=== PATIENT | female | born 1995 | race Two or more races ===

== ENCOUNTER 2017-02-10 18:25 | Emergency (ER) | payer OTHER ==
[2017-02-10 18:37] VITALS: BP 125/65
[2017-02-10] MEDS ORDERED: Sodium Chloride 0.9% 1,000 ML IV ONE ×2 (19:13→20:43)
[2017-02-10] MEDS ORDERED: Ondansetron 4 MG/2 ML SDV IVPUSH ONE (20:29)
--- NOTE | 2017-02-10 21:07 | EDM.PDOC ---
ED HPI GENERAL MEDICAL PROBLEM - General Chief Complaint: Back Pain or Injury Stated Complaint: 16 WKS PG - ABDOMINAL PAIN Time Seen by Provider: 02/10/17 19:09 Source of Information: Reports: Patient History Limitations: Reports: No Limitations - History of Present Illness INITIAL COMMENTS - FREE TEXT/NARRATIVE: This is a 21-year-old female. She isn't incarcerated [facility] [place]. He apparently is 16 weeks she is a 3 para 1 aborta 1. Apparently today the nurses at the [facility] unable to find a heartbeat and the patient was having some mild nausea but no vomiting and having some right-sided back pain but denies any urinary tract type symptoms. She arrived to the ER she was noted to have orthostatic vital signs. She denies any fever or chills, no cough. She is more concerned about her right back pain as well as the absence of heart tones. She denies any other acute symptoms at this time. She does give a history of having urinary tract infections with her first . Right Lower Back Pain Score (Numeric/FACES): 6 - Related Data Allergies Allergy/AdvReac Type Severity Reaction Status Date / Time No Known Allergies Allergy Verified 02/10/17 18:36 Home Meds: Home Meds Promethazine [Phenergan] 25 mg PO Q6H PRN #10 tablet 02/11/17 [Rx] Past Medical History Genitourinary History: Reports: UTI, Recurrent [employer] History: Reports: , Other (See Below) Other OB/BYN History: G3, P1, A1 Psychiatric History: Reports: Addiction Social & Family History - Tobacco Use Smoking Status *Q: Never Smoker Second Hand Smoke Exposure: No - Caffeine Use Caffeine Use: Reports: None - Recreational Drug Use Recreational Drug Use: Yes Drug Use in Last 12 Months: Yes Recreational Drug Type: Reports: Methamphetamine Other Recreational Drug Type: 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 ED ROS GENERAL - Review of Systems Review Of Systems: See Below Constitutional: Denies: Fever, Chills HEENT: Reports: No Symptoms Respiratory: Reports: No Symptoms Cardiovascular: Reports: No Symptoms Endocrine: Reports: No Symptoms GI/Abdominal: Denies: Abdominal Pain, Diarrhea, Nausea, Vomiting : Reports: No Symptoms Musculoskeletal: Reports: Back Pain Skin: Reports: No Symptoms Neurological: Reports: No Symptoms Psychiatric: Reports: No Symptoms Hematologic/Lymphatic: Reports: No Symptoms ED EXAM,LOWER BACK PAIN/INJURY - Physical Exam Exam: See Below Exam Limited By: No Limitations General Appearance: Alert, WD/WN, No Apparent Distress Eye Exam: Bilateral Eye: Normal Inspection Ears: Normal External Exam, Normal Canal, Normal TMs Nose: Normal Inspection Throat/Mouth: Normal Inspection, Normal Lips, Normal Oropharynx, Normal Voice Head: Normocephalic Neck: Supple Respiratory/Chest: No Respiratory Distress, Lungs Clear, Normal Breath Sounds Cardiovascular: Regular Rate, Rhythm, No Murmur GI/Abdominal: Soft, Non-Tender, Other (Might be able to feel the uterus slightly in the lower abdomen, no tenderness noted) Back Exam: Other (She has maybe some mild tenderness in the right flank area but it is not excessive and not 100% reproducible, no other back tenderness has been noted) Extremities: Normal Inspection, Normal Range of Motion Neurological: Alert, Normal Mood/Affect Psychiatric: Normal Affect, Normal Mood Skin Exam: Warm, Dry Course - Vital Signs Last Recorded V/S: Last Vital Signs Temp 97.6 F 02/10/17 18:34 Pulse 73 02/10/17 18:34 Resp 19 02/10/17 18:34 BP 125/65 02/10/17 18:34 Pulse Ox 100 02/10/17 18:34 Orthostatic Blood Pressure [ 106/68 Standing] Orthostatic Blood Pressure [ 125/71 Sitting] Orthostatic Blood Pressure [ 120/61 Supine] - Orders/Labs/Meds Orders: Active Orders 24 hr Category Date Time Status Abdomen Ltd [US] Stat Exams 02/10/17 23:42 Taken OB Ltd 1 or More Fetus [US] Stat Exams 02/10/17 19:27 Taken Labs: Laboratory Tests 02/10/17 02/10/17 02/10/17 Range/Units 18:50 19:20 19:20 WBC 8.83 (3.98-10.04) K/mm3 RBC 4.05 (3.98-5.22) M/mm3 Hgb 13.3 (11.2-15.7) gm/L Hct 38.6 (34.1-44.9) % MCV 95.3 H (79.4-94.8) fl MCH 32.8 H (25.6-32.2) pg MCHC 34.5 (32.2-35.5) g/dl RDW Std Deviation 44.8 (36.4-46.3) fL Plt Count 215 (182-369) K/mm3 MPV 10.9 (9.4-12.3) fl Neut % (Auto) 67.7 (34.0-71.1) % Lymph % (Auto) 24.2 (19.3-51.7) % [place] % (Auto) 7.1 (4.7-12.5) % Eos % (Auto) 0.3 L (0.7-5.8) Baso % (Auto) 0.2 (0.1-1.2) % Neut # (Auto) 5.97 (1.56-6.13) K/mm3 Lymph # (Auto) 2.14 (1.18-3.74) K/mm3 [place] # (Auto) 0.63 H (0.24-0.36) K/mm3 Eos # (Auto) 0.03 L (0.04-0.36) K/mm3 Baso # (Auto) 0.02 (0.01-0.08) K/mm3 Sodium 140 (136-145) mEq/L Potassium 3.7 (3.5-5.1) mEq/L Chloride 106 (98-107) mEq/L Carbon Dioxide 27 (21-32) mEq/L Anion Gap 10.7 (5-15) BUN 7 (7-18) mg/dL Creatinine 0.6 (0.55-1.02) mg/dL Est Cr Clr Drug Dosing 143.02 mL/min Estimated GFR (MDRD) > 60 (>60) mL/min BUN/Creatinine Ratio 11.7 L (14-18) Glucose 89 (74-106) mg/dL Calcium 9.1 (8.5-10.1) mg/dL Total Bilirubin 0.8 (0.2-1.0) mg/dL AST 206 H (15-37) U/L ALT 476 H (14-59) U/L Alkaline Phosphatase 51 (46-116) U/L Total Protein 7.0 (6.4-8.2) g/dl Albumin 3.3 L (3.4-5.0) g/dl Globulin 3.7 gm/dL Albumin/Globulin Ratio 0.9 L (1-2) HCG, Quant 75582.0 mIU/mL Urine Color Light yellow (Yellow) Urine Appearance Clear (Clear) Urine pH 6.0 (5.0-8.0) Ur Specific [place] 1.010 (1.005-1.030) Urine Protein Negative (Negative) Urine Glucose (UA) Negative (Negative) Urine Ketones Negative (Negative) Urine Occult Blood Negative (Negative) Urine Nitrite Negative (Negative) Urine Bilirubin Negative (Negative) Urine Urobilinogen 0.2 (0.2-1.0) Ur Leukocyte Esterase Negative (Negative) Urine RBC Not seen (0-5) /hpf Urine WBC Not seen (0-5) /hpf Ur Epithelial Cells 0-5 (0-5) /hpf Urine Bacteria Rare (FEW) /hpf Urine Mucus Not seen (FEW) /hpf Meds: Medications Discontinued Medications Generic Name Dose Route Start Last Admin Trade Name Freq PRN Reason Stop Dose Admin Sodium Chloride 1,000 mls @ 999 mls/hr 02/10/17 19:13 02/10/17 19:23 Normal Saline IV 02/10/17 20:13 999 mls/hr ONETIME ONE Administration Sodium Chloride 1,000 mls @ 999 mls/hr 02/10/17 20:43 02/10/17 20:50 Normal Saline IV 02/10/17 21:43 999 mls/hr ONETIME ONE Administration Ondansetron HCl 4 mg 02/10/17 20:29 02/10/17 20:39 Zofran IVPUSH 02/10/17 20:30 4 mg ONETIME ONE Administration - Radiology Interpretation Free Text/Narrative:: Ultrasound of the uterus shows a 17 week 2 day old fetus that is alive. Ultrasound of the gallbladder does not show any acute gallbladder problems. - Re-Assessments/Exams Free Text/Narrative Re-Assessment/Exam: 02/11/17 00:37 I spoke to the patient regarding the ultrasound results of the baby as well as her gallbladder. She indicates to me that she has hepatitis C and was newly diagnosed and I believe that's probably why she has elevated liver enzymes and may be even why she is having some right flank pain since everything else is coming back to be normal. Departure - Departure Time of Disposition: 00:37 Disposition: Home, Self-Care 01 Condition: Good Clinical Impression: Second trimester , Elevated liver enzymes, Dehydration, Orthostatic hypotension Hepatitis C Qualifiers: Viral hepatitis chronicity: chronic Hepatic coma status: without hepatic coma Qualified Code(s): B18.2 - Chronic viral hepatitis C - Discharge Information Prescriptions: Promethazine [Phenergan] 25 mg PO Q6H PRN #10 tablet PRN Reason: Nausea Referrals: Luz Elena Miller MD [Primary Care Provider] - Forms: ED Department Discharge Additional Instructions: Continue with her care, use the Phenergan as needed for nausea, drink lots of fluids and stay well-hydrated, follow up with the medical clinic at the [facility] for recheck, return to the ER if needed - My Orders Last 24 Hours: My Active Orders 02/10/17 19:27 OB Ltd 1 or More Fetus [US] Stat 02/10/17 23:42 Abdomen Ltd [US] Stat - Assessment/Plan Last 24 Hours: My Active Orders 02/10/17 19:27 OB Ltd 1 or More Fetus [US] Stat 02/10/17 23:42 Abdomen Ltd [US] Stat
--- NOTE | 2017-02-13 18:00 | US ---
Limited obstetrical ultrasound: Multiple real-time images were obtained transabdominally. Comparison: No previous obstetrical ultrasound. Dates: LMP: LMP given as 10/19/16, DANNY 07/26/17, gestational age 16 weeks 2 days Current ultrasound: DANNY 07/19/17, gestational age 17 weeks 2 days presentation: Cephalic Placenta: Posterior and right lateral with no findings of placenta previa or abruption Amniotic fluid: [place] 11.18 cm Measurements: BPD: 3.83 cm - 17 weeks 5 days Head circumference: 13.65 cm - 17 weeks 1 day Abdominal circumference: 11.54 cm - 17 weeks 3 days Femur length: 2.27 cm - 16 weeks 6 days Estimated weight: 181 g (0 lbs. 6 oz.), estimated weight at the 32nd percentile for age by current ultrasound Heart rate: 144 bpm Cervical length: 3.2 cm Impression: 1. Single intrauterine fetus currently cephalic in presentation. Dates as noted above. 2. No complicating process is identified by ultrasound at this time. Diagnostic code #1 Agree with preliminary report issued by [facility] ([facility] preliminary report dictated on 02/10/17, 9:39 PM Central Time)
--- NOTE | 2017-02-13 18:00 | US ---
Limited abdominal ultrasound: Multiple real-time images of the upper right abdomen were obtained. Comparison: No previous abdominal imaging. Findings: Liver shows no focal parenchymal abnormality. Gallbladder shows no gallstones. No gallbladder wall thickening or biliary duct dilatation is seen. Pancreas is felt to be within normal limits. Right kidney shows no hydronephrosis or mass and has a length of 12.0 cm. Inferior vena cava is patent. Impression: 1. No abnormality is identified on right upper quadrant abdominal ultrasound. Diagnostic code #1 Agree with preliminary report issued by [facility] ([facility] preliminary report dictated on 02/11/17, 1:28 AM Central Time)
== END 2017-02-11 00:51 | disposition home or self-care (01) ==
LOC: JD.ED 18:25
DX: O98.412 Viral hepatitis complicating pregnancy, second trimester (principal); B18.2 Chronic viral hepatitis C; O99.282 Endocrine, nutritional and metabolic diseases complicating pregnancy, second trimester; E86.0 Dehydration; O99.412 Diseases of the circulatory system complicating pregnancy, second trimester; O26.52 Maternal hypotension syndrome, second trimester; O99.89 Other specified diseases and conditions complicating pregnancy, childbirth and the puerperium; R74.8 Abnormal levels of other serum enzymes; Z87.440 Personal history of urinary (tract) infections; Z3A.16 16 weeks gestation of pregnancy
CPT/HCPCS: 36415; 76705; 76815; 80053; 81001; 84702; 85025; 96361; 96374; 99284; J2405; J7040